=== PATIENT | female | born 1950 | race Caucasian/White ===

== ENCOUNTER → 2016-06-18 | Outpatient (CLI) | payer BC ==
[~2016-06-18] MED LIST: ALTACE 5MG5 MG PO; FLOMAX 0.40.4 MG/CAP PO; NORCO 325 MG-51 TAB PO; PYRIDIUM 100MG100 MG PO; SENOKOT S 50 MG1 TAB PO; TIROSINT50 MC1 PO; VITAMIN D1000 IU PO; ZOCOR 40MG40 MG PO; ZOFRAN 4MG T4 MG/TAB PO; ZYLOPRIM 300MG300 MG PO
== END ==
LOC: MC.RAD 11:20
DX: Z12.31 Encounter for screening mammogram for malignant neoplasm of breast (principal); Z80.3 Family history of malignant neoplasm of breast